=== PATIENT | male | born 1975 | race Caucasian/White ===

== ENCOUNTER 2024-08-25 07:03 | Observation (INO) ==
--- NOTE | 2024-08-25 07:21 | Emergency Department Note ---
Impression & Plan Spleen hematoma, Abdominal pain ED Provider Note CHIEF COMPLAINT: Abdominal pain HISTORY OF PRESENTING ILLNESS: This 48-year-old male patient presents to the emergency department with his mother for evaluation of left sided and epigastric abdominal pain. He started with mild symptoms 3 days ago. He also had nausea and vomiting the evening that the pain started. He felt like he had fever and chills at that time too. The next day he felt a little better, but did not eat much. Last night at 10 PM the pain got worse. At 3:30 AM this morning the pain was excruciating and he got dizzy and felt like he was going to pass out. The patient states that he was able to put his hand on the bed and dresser and lowered himself down to the ground. He states that he did not fall. However, he thinks he did pass out because he woke up on the floor sweaty. He does not think he hit his head. He is not on any blood thinners. Denies any headache or pain from the possible syncopal episode. Denies headache, dizziness, change in vision, nausea, vomiting, or change in personality currently. Denies any diarrhea and has been having normal BMs. He continues to pass gas without problems. No vomiting since the initial day. Denies any chest pain or SOB, but different positions the abdominal pain can cause his breath to be taken away. Denies any urinary symptoms. No known ill contacts. He has had an appendectomy. The patient denies any fevers, cough, or URI symptoms recently. He denies any recent injury or trauma. He drinks 10-15 beers a week. The patient had a colonoscopy 05/17/[address] La that showed a 3 mm rectal polyp and nonbleeding internal hemorrhoids. Pathology showed that the polyp was a hyperplastic polyp. REVIEW OF SYSTEMS: See HPI for pertinent positives and pertinent negatives. ALLERGIES: NKDA MEDICATIONS: Omeprazole PAST MEDICAL HISTORY: GERD. Appendectomy. PHYSICAL EXAM: VITALS: Vitals are noted on the nurse's note and reviewed by myself. GENERAL: Non toxic, in no acute distress, non-diaphoretic. SKIN: Capillary refill <2 sec. EYES: PERRLA. EOMI. Conjunctivae without injection, sclerae without icterus. NOSE: Patent without discharge. MOUTH: Mucous membranes moist. Uvula midline. Airway patent. NECK: Supple without nuchal rigidity. HEART: Regular rate and rhythm without murmurs gallops or rubs. LUNGS: Clear to auscultation bilaterally without wheezes, rales or rhonchi. No retractions or accessory muscle use. ABDOMEN: Positive bowel sounds x 4. Normal tympanic percussion. Soft, diffusely tender to palpation, but worse in the epigastric and left side of the abdomen. The pain is worse with activation of the abdominal wall muscles and sitting up. No evidence for ecchymosis or bruising. Negative [place]'s and [place]yers sign. No masses or hepatosplenomegaly. Arce sign negative. No CVA tenderness. No guarding, rigidity, or rebound tenderness. No focal RLQ tenderness. MUSCULOSKELETAL: No gross musculoskeletal defects. NEURO: Patient was alert and oriented. No focal neurological deficits. DIFFERENTIAL DIAGNOSIS: Differential diagnosis includes hepatitis, pancreatitis, cholecystitis, cholelithiasis, appendicitis, kidney stone, pyelonephritis, UTI, gastritis, gastroenteritis, mesenteric adenitis, obstruction, constipation, hernia, abdominal abscess, perforation, diverticulitis, IBD, ischemic colitis, abdominal aortic aneurysm, testicular torsion, prostatitis, or others. ED COURSE AND MEDICAL DECISION MAKING: MEDICATIONS GIVEN: 2 L normal saline solution bolus. Tylenol 1000 mg IV. Zofran 4 mg IV. Pepcid 20 mg IV. Toradol was initially ordered, but then canceled due to his renal functions and CT scan findings. MONITOR: Continuous pattern hand: Order was placed for continuous pattern hand. Patient was placed on the pattern hand and continuous pulse ox. Patient was noted to be in normal sinus rhythm at an initial rate of 90 bpm per my interpretation. EKG: EKG was interpreted by myself as normal sinus rhythm at 85 bpm with no acute ST or T wave changes. INTERPRETATION OF LABS: I interpreted the labs with full lab results as below in the lab section of this note. Laboratory results pertinent to the emergent complaint are discussed in the MDM section below. The patient was advised to follow up with their PCP and/or specialist(s) for further outpatient monitoring and management of any abnormal results. INTERPRETATION OF IMAGING: Imaging studies were interpreted by myself and read by radiology as per the imaging section of this note. The patient was advised to follow up with their PCP and/or specialist(s) for further outpatient management of any non-emergent abnormal findings. Chest x-ray negative for acute cardiopulmonary etiology and no free air under the diaphragm. CT scan of the abdomen and pelvis with IV contrast shows a small perisplenic hematoma, a small amount of hemorrhage in the left upper quadrant, and a small amount of layering hemorrhage in the pelvis consistent with a splenic hemorrhage. There is mild splenomegaly. No significant splenic laceration seen. No contrast extravasation seen to suggest continuing hemorrhage. The prostate is mildly enlarged. Diverticulosis, but no evidence of diverticulitis. EXTERNAL RECORDS REVIEWED: I reviewed the patient's last colonoscopy as above. CONSULTATIONS: Negar Chauhan PA-C of surgery MDM SUMMARY: I examined the patient. The patient started with epigastric and left-sided abdominal pain 3 days ago. The symptoms got a lot worse last night. The patient thinks he may have passed out from the pain at 3:30 AM this morning because he woke up on the floor sweaty. He does not think he hit his head. He denies any head injury symptoms and denies any pain other than his abdomen. He denies any chest pain or shortness of breath. An IV lock was placed and labs were drawn. The patient was initially given 1 L normal saline solution bolus, Tylenol 1000 mg IV, Zofran 4 mg IV, and Pepcid 20 mg IV. Toradol was initially ordered for additional pain control, but then canceled due to his renal functions and CT scan findings. The patient declined any stronger pain medication while in the ER. The patient was given a second liter of normal saline solution bolus due to the 2+ ketones in his urine, his urinalysis findings, and his BMP findings. White blood cell count normal at 6.46. Hemoglobin normal at 16.1. Platelet count normal at 188. Sodium 134, anion gap 13, creatinine 1.6, glucose 150, AST 48, and ALT 62. CMP otherwise normal. Magnesium normal. Lipase normal. Urinalysis with 2+ proteins, 2+ ketones, 1+ urine bilirubin, trace leukocyte esterase, greater than 20 hyaline casts, 11-20 epithelial cells. Granular casts, white blood cell casts, and urine mucus present. Chest x-ray negative for acute cardiopulmonary etiology and no free air under the diaphragm. CT scan of the abdomen and pelvis with IV contrast shows a small perisplenic hematoma, a small amount of hemorrhage in the left upper quadrant, and a small amount of layering hemorrhage in the pelvis consistent with a splenic hemorrhage. There is mild splenomegaly. No significant splenic laceration seen. No contrast extravasation seen to suggest continuing hemorrhage. The prostate is mildly enlarged. Diverticulosis, but no evidence of diverticulitis. The patient denies any injury or trauma recently. He states that he did not fall this morning, but rather lowered himself to the floor. He denies any recent fevers or URI symptoms to suggest possible mononucleosis enlarging his spleen. He denies any previous problems with his spleen or bleeding disorders. The patient has no evidence of ecchymosis on exam at this time. The patient is not on blood thinners. I spoke with Negar Chauhan PA-C of general surgery who presented to the emergency department to evaluate the patient. Surgery recommended the patient be admitted for observation under the hospitalist service. No indication for surgical intervention at this time. I spoke with the on-call hospitalist who agreed to admit the patient for further evaluation and treatment. Please refer to their dictation for further details. The patient's care was transferred in stable condition. DIAGNOSIS: Splenic hemorrhage Abdominal pain ? Syncopal episode Past Med/Surg History Problem List (Updated 08/25/24 @ 17:32 by Claire Elder PA-C) Abdominal pain (Acute) Spleen hematoma (Acute) Pre-diabetes Colon cancer screening Encounter for pre-operative examination Hx of appendectomy (Chronic) Dysphagia (Chronic) Umbilical hernia without obstruction and without gangrene (Chronic) Chronic GERD (Chronic) Medical History GERD (gastroesophageal reflux disease) History of COVID-19 03/2021 (TESTED [facility]) MILD FEVER/FATIGUE/BODY ACHES *FEELING BETTER Surgical History History of esophagogastroduodenoscopy (EGD) History of appendectomy [place] teeth removed Family History Mother Asthma Grandfather (Paternal) Myocardial infarction Father Family history of diabetes mellitus Other No family history of adverse response to anesthesia Denies family history of Ovarian cancer Prostate cancer Breast cancer Colorectal cancer Social History Smoking Status: Never smoker Tobacco Type: Cigarettes Age Started Using Tobacco: 20; Age Quit Using Tobacco: 40; packs per day: 0.5; Cigarettes Per Day: 10; Second Hand Exposure: No; Do You Dip or Chew Tobacco: No; Tobacco Cessation Education Requested by Patient: No Hx Alcohol Use: Yes Alcohol type: beer Alcohol Intake Frequency: 2-3 x/Week Hx Substance Use: Yes Non-Prescribed Medications: Marijuana Last Used Substance Other:: 1 week ago Substance Use Type Other:: medical marijuana Preferred Language: Yi Communication Ability: Effective Visual Impairment: No Limitations Hearing Ability: Normal Team Assistant Required: No Beliefs That Will Affect Care: None marital status: Single Current Living Situation: Alone current occupational status: employed current occupation: [employer] HEL[employer] How many Children do You have: 1 Other Information That Helps Us Care for You: No Feels Safe at Home: Yes Safety Concerns: Feels Safe At This Time Childhood Exposure to Second-Hand Smoke: No Diet: regular caffeine: Yes during the past year weight has: increased > 10 lbs Dental Care, Regularly: Yes Physical Activity Frequency: Daily Seatbelt Use: always Sunscreen Use: Yes Assistive Devices: Glasses Allergies Allergies Allergy/AdvReac Type Severity Reaction Status Date / Time No Known Allergies Allergy Verified 06/13/24 07:58 Home Meds Previous Rx's Medication Instructions Recorded omeprazole 20 mg capsule,delayed 20 mg PO QAM #90 caps 02/28/22 release Results & Data (ED) Vital Signs Vital Signs - 24 hr 08/25/24 07:12 08/25/24 07:28 08/25/24 08:10 Temperature 36.6 C Temperature Source Oral Pulse Rate 112 H 88 80 Pulse Rate [Apical] Respiratory Rate 20 12 Respiratory Effort / Characteristics Non-Labored Spontaneous Respiratory Depth Normal Respiratory Pattern Regular Blood Pressure 101/67 Blood Pressure [Left Arm] Blood Pressure Mean 78 Blood Pressure Mean [Left Arm] Pulse Oximetry 100 96 Oxygen Delivery Method Room Air Room Air Sepsis Recent Fever Within 48 Hours No Sepsis New/Unexplained Change in Mental Status N/A Sepsis Action Taken by Nursing No Action Required 08/25/24 08:10 08/25/24 09:01 08/25/24 09:46 Temperature Temperature Source Pulse Rate Pulse Rate [Apical] 74 80 76 Respiratory Rate 14 23 17 Respiratory Effort / Characteristics Non-Labored Spontaneous Non-Labored Non-Labored Spontaneous Respiratory Depth Normal Normal Normal Respiratory Pattern Regular Regular Regular Blood Pressure Blood Pressure [Left Arm] 129/86 126/83 137/89 Blood Pressure Mean Blood Pressure Mean [Left Arm] 100 97 105 Pulse Oximetry 96 96 98 Oxygen Delivery Method Room Air Room Air Room Air Sepsis Recent Fever Within 48 Hours Sepsis New/Unexplained Change in Mental Status Sepsis Action Taken by Nursing 08/25/24 10:13 08/25/24 10:47 08/25/24 11:04 Temperature Temperature Source Pulse Rate Pulse Rate [Apical] 80 82 88 Respiratory Rate 15 17 16 Respiratory Effort / Characteristics Non-Labored Spontaneous Non-Labored Spontaneous Non-Labored Spontaneous Respiratory Depth Normal Normal Normal Respiratory Pattern Regular Regular Regular Blood Pressure Blood Pressure [Left Arm] 125/78 136/76 134/92 Blood Pressure Mean Blood Pressure Mean [Left Arm] 93 96 106 Pulse Oximetry 98 96 97 Oxygen Delivery Method Room Air Room Air Room Air Sepsis Recent Fever Within 48 Hours Sepsis New/Unexplained Change in Mental Status Sepsis Action Taken by Nursing Laboratory Data 08/25/24 14:00 08/25/24 07:23 Lab Results 08/25/24 08/25/24 Range/Units 07:23 08:01 WBC 6.46 (4.8-10.8) K/ul RBC 5.59 (4.70-6.10) M/uL Hgb 16.1 (14.0-18.0) g/dl Hct 47.7 (42.0-52.0) % MCV 85.3 (80.0-100.0) fL MCH 28.8 (25.0-34.0) pg MCHC 33.8 (32.0-36.0) g/dL RDW Std Deviation 42.1 (36.4-46.3) fL RDW Coeff of Judi 13.6 (11.5-14.5) % Plt Count 188 (130-400) K/uL MPV 10.4 (9.4-12.4) fL Immature Gran % (Auto) 0.3 % Neut % (Auto) 74.4 % Lymph % (Auto) 13.2 % [place] % (Auto) 11.9 % Eos % (Auto) 0.0 % Baso % (Auto) 0.2 % Neut # (Auto) 4.81 (1.40-6.50) K/uL Lymph # (Auto) 0.85 L (1.20-3.40) K/uL [place] # (Auto) 0.77 H (0.11-0.59) K/uL Eos # (Auto) 0.00 (0.00-0.50) K/uL Baso # (Auto) 0.01 (0.00-0.20) K/uL Immature Gran # (Auto) 0.02 (0.01-0.20) K/uL Toxic Vacuolation 1+ Sodium 134 L (136-145) mmol/L Potassium 3.5 (3.5-5.1) mmol/L Chloride 96 L (98-107) mmol/L Carbon Dioxide 25 (21-32) mmol/L Anion Gap 13 H (3-11) BUN 22 (6-23) mg/dl Creatinine 1.60 H (0.6-1.4) mg/dl Est Cr Clr Drug Dosing 60.3 ml/min eGFR 52.82 BUN/Creatinine Ratio 13.8 (10-20) Glucose 150 H (70-99(Fasting)) mg/dl Calcium 9.4 (8.6-10.3) mg/dl Magnesium 2.1 (1.7-2.4) mg/dl Total Bilirubin 0.9 (0.2-1.0) mg/dl AST 48 H (13-39) U/L ALT 62 H (7-52) U/L Alkaline Phosphatase 90 (34-104) U/L Troponin I High Sens 19.0 (0-20) pg/ml Total Protein 7.8 (6.0-8.3) gm/dl Albumin 4.4 (3.4-5.0) gm/dl Globulin 3.4 (2.5-4.0) gm/dl Albumin/Globulin Ratio 1.3 (0.9-2) Lipase 32 (11-82) U/L Urine Color Dark Yellow Urine Appearance Cloudy A (Clear) Urine pH 5.5 (4.5-7.5) Ur Specific [place] 1.026 (1.000-1.030) Urine Protein 2+ H (Negative) Urine Glucose (UA) Negative (Negative) Urine Ketones 2+ H (Negative) Urine Blood Negative (Negative) Urine Nitrite Negative (Negative) Urine Bilirubin 1+ H (Negative) Urine Urobilinogen Negative (Negative) Ur Leukocyte Esterase Trace H (Negative) Urine WBC (Auto) 0-5 (0-5) /hpf Urine RBC (Auto) 0-2 (0-2) /hpf U Hyaline Cast (Auto) >20 H (0-2) /lpf U Epithel Cells (Auto) 11-20 H (0-2) /hpf Urine Bacteria (Auto) None Seen (None Seen) Hyaline Casts Present A (None Presnt) /lpf Granular Casts Present A (None Prsent) /lpf WBC Casts Present A (None Prsent) /lpf Urine Mucus Present A (None Prsent) Urine Comment Monoscreen Negative (Negative) Administered Medications Lactated Ringer's (Lr) 1,000 mls @ 100 mls/hr IV .Q10H LEMUEL Stop: 08/25/24 21:44 Last Admin: 08/25/24 12:56 Dose: 100 mls/hr Documented By: MARBIN Discontinued Medications Sodium Chloride (Nss) 1,000 mls @ 999 mls/hr IV .Q1H1M ONE Stop: 08/25/24 08:43 Last Infusion: 08/25/24 09:13 Dose: Infused Documented By: Admin: 08/25/24 07:55 Dose: 999 mls/hr Documented By: ZAYNAB Acetaminophen (Ofirmev) 1,000 mg in 100 mls @ 400 mls/hr IV NOW STA Stop: 08/25/24 07:57 Last Infusion: 08/25/24 08:15 Dose: Infused Documented By: Admin: 08/25/24 07:55 Dose: 400 mls/hr Documented By: ZAYNAB Famotidine (Pepcid 20mg Iv Push) 20 mg in 5 mls @ 2.5 mls/min IV NOW STA Stop: 08/25/24 07:44 Last Admin: 08/25/24 07:55 Dose: 2.5 mls/min Documented By: ZAYNAB Sodium Chloride (Nss) 1,000 mls @ 999 mls/hr IV .Q1H1M ONE Stop: 08/25/24 09:51 Last Infusion: 08/25/24 10:47 Dose: Infused Documented By: Admin: 08/25/24 09:24 Dose: 999 mls/hr Documented By: ZAYNAB Ioversol (Optiray 320 100ml) 94 ml IV ONCE ONE Stop: 08/25/24 08:38 Last Admin: 08/25/24 08:38 Dose: 94 ml Documented By: DAMASO Ketorolac Tromethamine (Ketorolac Tromethamine 15 Mg/Ml Vial) 5 mg IV NOW ONE Stop: 08/25/24 09:02 Last Admin: 08/25/24 09:13 Dose: Not Given Documented By: ZAYNAB Ondansetron HCl (Ondansetron Inj 2 Mg/Ml 2 Ml Vial) 4 mg IV NOW STA Stop: 08/25/24 07:44 Last Admin: 08/25/24 07:55 Dose: 4 mg Documented By: ZAYNAB Imaging Data Radiologist's Impression: Chest X-Ray 08/25/24 07:44 XR chest 1V portable CLINICAL HISTORY: Upright CXR - eval for free air - upper abd pain COMPARISON STUDY: 08/20/2014 FINDINGS: Heart size and pulmonary vasculature are normal. No effusion, consolidation, or pneumothorax. No free air seen under the diaphragm. IMPRESSION: No acute findings seen. ACT 112: Negative or not required by law. Electronically signed by: Chris Stevens M.D. 08/25/2024 8:25 AM Abdomen/Pelvis CT 08/25/24 07:[address] WITH IV CONTRAST CT DOSE: 1366.55 mGy.cm HISTORY: abdominal pain - upper and left sided TECHNIQUE: Multiaxial CT images of the abdomen and pelvis were performed following the IV administration of 90 cc of Optiray, A dose lowering technique was utilized adhering to the principles of ALARA. COMPARISON STUDY: None FINDINGS: ABDOMEN: There is a small perisplenic hematoma. There is a small amount of hematoma peripherally at the left upper quadrant. There is mild splenomegaly measuring 13 cm. No significant splenic laceration seen. Liver, gallbladder, pancreas, and adrenal glands are unremarkable. Kidneys show no hydronephrosis. There is a tiny cyst mid left kidney. There are mild atherosclerotic calcifications. No abdominal aortic aneurysm. Pelvis: There is a small amount of hemorrhage in the low pelvis and low paracolic gutters. No free air or abscess. Prostate is mildly enlarged. Urinary bladder is nondistended. There is mild colonic diverticulosis. No acute diverticulitis. No enlarged adenopathy. Osseous structures: There is L5-S1 degenerative disc disease. No acute osseous finding seen. IMPRESSION: 1. Small perisplenic hematoma, small amount of hemorrhage left upper quadrant, and small amount of layering hemorrhage in the pelvis, consistent with splenic hemorrhage. 2. There is mild splenomegaly. No significant splenic laceration seen. No contrast extravasation seen to suggest continuing hemorrhage. 3. Otherwise as described. ACT 112: Negative or not required by law. The above report was generated using voice recognition software. It may contain grammatical, syntax or spelling errors. Electronically signed by: Chris Stevens M.D. 08/25/2024 9:03 AM Discharge Plan Visit Data Chief Complaint: Abdominal Pain Stated Complaint: ABD PAIN, NAUSEA, VOMMITING ED Provider: Nirmal Varner ED Midlevel Provider: Claire Elder Discharge Problem: Spleen hematoma, Abdominal pain Patient Disposition: Admitted As Inpatient Condition: Fair Discharge Instructions Interventions: ED Discharge Assessment Last Done: 08/25/24 12:07 Discharge Problem: Spleen hematoma Qualifiers: Encounter type: initial encounter Qualified Code(s): S36.029A - Unspecified contusion of spleen, initial encounter Abdominal pain Qualifiers: Abdominal location: generalized Qualified Code(s): R10.84 - Generalized abdominal pain
[2024-08-25] MEDS: FAMOTIDINE 20MG IV PUSH 20 MG/5 ML SYR IV STA (07:55)
[2024-08-25] MEDS: ONDANSETRON INJ 2 MG/ML 2 ML VIAL IV STA (07:55)
[2024-08-25] MEDS: SODIUM CHLORIDE 0.9% 1,000 ML IV ONE ×2 (07:55→09:24)
[2024-08-25] MEDS: ACETAMINOPHEN 1,000 MG/100 ML VIAL IV STA (07:55)
[2024-08-25 07:58] LABS: Hematocrit (blood only) 47.7 % (42.0-52.0); Hemoglobin 16.1 g/dl (14.0-18.0); Mean Corpuscular Hemoglobin 28.8 pg (25.0-34.0); Mean Corpuscular Hgb Conc 33.8 g/dL (32.0-36.0); Mean Corpuscular Volume 85.3 fL (80.0-100.0); Mean Platelet Volume 10.4 fL (9.4-12.4); Platelet Count 188 K/uL (130-400); RDW Coefficient of Variation 13.6 % (11.5-14.5); RDW Standard Deviation 42.1 fL (36.4-46.3); Red Blood Count 5.59 M/uL (4.70-6.10); White Blood Count 6.46 K/ul (4.8-10.8)
[2024-08-25 08:16] LABS: Albumin Globulin Ratio 1.3 (0.9-2); Albumin Level 4.4 gm/dl (3.4-5.0); BUN Creatinine Ratio 13.8 (10-20); Bilirubin,Total 0.9 mg/dl (0.2-1.0); Calcium 9.4 mg/dl (8.6-10.3); Creatinine Clr Calc Pharmacy 60.3 ml/min; Globulin 3.4 gm/dl (2.5-4.0); Magnesium 2.1 mg/dl (1.7-2.4); Potassium 3.5 mmol/L (3.5-5.1); Total Protein 7.8 gm/dl (6.0-8.3)
[2024-08-25 08:21] LABS: Basophils # (auto) 0.01 K/uL (0.00-0.20); Basophils % (auto) 0.2 %; Immature Granulocytes # (auto) 0.02 K/uL (0.01-0.20); Immature Granulocytes % (auto) 0.3 %; Lymphocytes # (auto) 0.85 K/uL (1.20-3.40); Lymphocytes % (auto) 13.2 %; Monocytes # (auto) 0.77 K/uL (0.11-0.59); Monocytes % (auto) 11.9 %; Neutrophils # (auto) 4.81 K/uL (1.40-6.50); Neutrophils % (auto) 74.4 %; Toxic Vacuolation 1+
--- NOTE | 2024-08-25 08:28 | XRay Report ---
XR chest 1V portable CLINICAL HISTORY: Upright CXR - eval for free air - upper abd pain COMPARISON STUDY: 08/20/2014 FINDINGS: Heart size and pulmonary vasculature are normal. No effusion, consolidation, or pneumothora x. No free air seen under the diaphragm. IMPRESSION: No acute findings seen. ACT 112: Negative or not required by law. Electronically signed by: Chris Stevens M.D. 08/25/2024 8:25 AM
[2024-08-25] MEDS: OPTIRAY 320 100ml IV ONE (08:38)
[2024-08-25 08:48] LABS: Appearance Urine Cloudy (Clear); Bacteria Urine Automated None Seen (None Seen); Bilirubin Urine 1+ (Negative); Blood Urine Negative (Negative); Cast Urine Automated >20 /lpf (0-2); Color Urine Dark Yellow; Glucose Urine UA Negative (Negative); Granular Casts Urine Present /lpf (None Prsent); Hyaline Casts Urine Present /lpf (None Presnt); Ketones Urine 2+ (Negative); Leukocyte Esterase Urine Trace (Negative); Mucus Urine Present (None Prsent); Nitrite Urine Negative (Negative); Protein Urine 2+ (Negative); RBC Urine Automated 0-2 /hpf (0-2); Specific Gravity Urine 1.026 (1.000-1.030); Urobilinogen Urine Negative (Negative); WBC Urine Automated 0-5 /hpf (0-5); White Blood Cell Casts Urine Present /lpf (None Prsent); pH Urine 5.5 (4.5-7.5)
--- NOTE | 2024-08-25 09:05 | CT Scan Report ---
ABDOMEN AND PELVIS CT WITH IV CONTRAST CT DOSE: 1366.55 mGy.cm HISTORY: abdominal pain - upper and left sided TECHNIQUE: Multiaxial CT images of the abdomen and pelvis were performed following the IV administrat ion of 90 cc of Optiray, A dose lowering technique was utilized adhering to the principles of ALARA. COMPARISON STUDY: None FINDINGS: ABDOMEN: There is a small perisplenic hematoma. There is a small amount of hematoma peripherally at t he left upper quadrant. There is mild splenomegaly measuring 13 cm. No significant splenic laceration seen. Liver, gallbladder, pancreas, and adrenal glands are unremarkable. Kidneys show no hydronephro sis. There is a tiny cyst mid left kidney. There are mild atherosclerotic calcifications. No abdomina l aortic aneurysm. Pelvis: There is a small amount of hemorrhage in the low pelvis and low paracolic gutters. No free ai r or abscess. Prostate is mildly enlarged. Urinary bladder is nondistended. There is mild colonic div erticulosis. No acute diverticulitis. No enlarged adenopathy. Osseous structures: There is L5-S1 degenerative disc disease. No acute osseous finding seen. IMPRESSION: 1. Small perisplenic hematoma, small amount of hemorrhage left upper quadrant, and small amount of la yering hemorrhage in the pelvis, consistent with splenic hemorrhage. 2. There is mild splenomegaly. No significant splenic laceration seen. No contrast extravasation seen to suggest continuing hemorrhage. 3. Otherwise as described. ACT 112: Negative or not required by law. The above report was generated using voice recognition software. It may contain grammatical, syntax o r spelling errors. Electronically signed by: Chris Stevens M.D. 08/25/2024 9:03 AM
[2024-08-25] MEDS: KETOROLAC TROMETHAMINE 15 MG/ML VIAL IV ONE (09:13)
--- NOTE | 2024-08-25 09:35 | Surgery Consultation ---
Date of Consultation August 25, 2024 Assessment & Plan (1) Spleen hematoma: This is a 48y M with a PMH of GERD who presents to the [facility] ED on 08/25/24 with complaints of abdominal pain with recent lightheadedness and possible associated syncopal episode. The patient states he did have some nausea/vomiting with torres bjective fevers starting this past Sunday. Sunday he felt a little better but did begin to develop some abdominal discomfort. Then late last night into this AM he developed worsening pain in his upper abdomen and left sided abdomen that was severe. When he stood up he felt lightheaded and dizzy and feels like he maybe passed out. He was able to get his hands on his dressers to assist him to the floor, but doesn't remember much. When he came to he called his mother to bring him to the ER. Workup in the ER included a CT a/p that revealed a small perisplenic hematoma, small amount of hemorrhage left upper quadrant, and small amount of layering hemorrhage in the pelvis, consistent with splenic hemorrhage.There is mild splenomegaly. No significant splenic laceration seen. No contrast extravasation seen to suggest continuing hemorrhage. He denies any sort of trauma, falls, MVAs, etc. In the ER patient's Hbg is 16, WBC 6.4, K 3.5, Cr 1.6. His vital signs are stable. On exam abdomen is soft with mild discomfort to palpation in the right mid abdomen and across the bilateral lower abdomen. Patient feels better than upon presentation. There is no signs of active extravasation on CT scan and he has a stable Hbg and vitals. Would recommend patient be admitted for observation under hospitalist service. Can consider q6h hbg to ensure stability and continue to monitor vitals and patient closely. Hold any blood thinners. At this point there is no indication for any surgical intervention. We will follow. as above. stable. small splenic hematoma. admit. follow h/h. doubt surgical intervention will be required.will follow along History of Present Illness History of Present Illness This is a 48y M with a PMH of GERD who presents to the [facility] ED on 08/25/24 with complaints of abdominal pain with recent lightheadedness and possible associated syncopal episode. The patient states he did have some nausea/vomiting with subjective fevers starting this past Sunday. Sunday he felt a little better but did begin to develop some abdominal discomfort. Then late last night into this AM he developed worsening pain in his upper abdomen and left sided abdomen that was severe. When he stood up he felt lightheaded and dizzy and feels like he maybe passed out. He was able to get his hands on his dressers to assist him to the floor, but doesn't remember much. When he came to he called his mother to bring him to the ER. Workup in the ER included a CT a/p that revealed a small perisplenic hematoma, small amount of hemorrhage left upper quadrant, and small amount of layering hemorrhage in the pelvis, consistent with splenic hemorrhage. There is mild splenomegaly. No significant splenic laceration seen. No contrast extravasation seen to suggest continuing hemorrhage. The patient states his nausea/vomiting only lasted Sunday. He has had low appetite yesterday but did have bananas, apple pie, apple sauce, and water. He denies any sort of trauma, falls, MVAs, etc. He report some SOB 2/2 the pain, but at rest he has no chest pains or SOB. He denies any sick contacts or eating undercooked foods to his knowledge. His PSH includes and appendectomy as well as an inguinal hernia repair as an . He denies any blood thinner usage. No change in bowel or bladder habits. Currently at rest in the ER his pain is now a 2-3/10. Allergies Allergy/AdvReac Type Severity Reaction Status Date / Time No Known Allergies Allergy Verified 06/13/24 07:58 Home Medications Medication Instructions Recorded Confirmed Type omeprazole 20 mg capsule,delayed 20 mg PO [facility] #90 caps 02/28/22 08/25/24 Rx release Patient History Medical History GERD (gastroesophageal reflux disease) History of COVID-19 03/2021 (TESTED [facility]) MILD FEVER/FATIGUE/BODY ACHES *FEELING BETTER Surgical History History of esophagogastroduodenoscopy (EGD) History of appendectomy [place] teeth removed Family History Mother Asthma Grandfather (Paternal) Myocardial infarction Father Family history of diabetes mellitus Other No family history of adverse response to anesthesia Denies family history of Ovarian cancer Prostate cancer Breast cancer Colorectal cancer Social History Smoking Status: Former smoker Tobacco Type: Cigarettes Age Started Using Tobacco: 20; Age Quit Using Tobacco: 40; packs per day: 0.5; Cigarettes Per Day: 10; Second Hand Exposure: No ( A CHILD); Do You Dip or Chew Tobacco: No; Hx Alcohol Use: Yes Alcohol type: beer Alcohol Intake Frequency: 2-3 x/Week Hx Substance Use: Yes Non-Prescribed Medications: Marijuana Substance Use Type Other:: former marijuana Preferred Language: [place] Communication Ability: Effective Visual Impairment: No Limitations Hearing Ability: Normal Value Stream Leader Required: No Beliefs That Will Affect Care: None marital status: Single Current Living Situation: Alone current occupational status: employed 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 How many Children do You have: 1 Feels Safe at Home: Yes Childhood Exposure to Second-Hand Smoke: No Diet: regular caffeine: Yes during the past year weight has: increased > 10 lbs Dental Care, Regularly: Yes Physical Activity Frequency: Daily Seatbelt Use: always Sunscreen Use: Yes Assistive Devices: Glasses Review of Systems Constitutional: + fever (sunday) and + chills (last ay) Respiratory: had some shortness of breath 2/2 pain Cardiovascular: no chest pain Gastrointestinal: + abdominal pain (epigastric and left si ded), + bloating, + nausea (sunday) and + vomiting (sunday); no change in bowel habits and no blood in stools Genitourinary: no hematuria or no problem reported Physical Exam Physical Exam: awake/alert, no distress Constitutional: well developed and well nourished Respiratory: normal respiratory effort Gastrointestinal (Abdomen): Inspection/Auscultation: + abdomen distended (mild) Percussion/Palpation: + abdomen tender (mild discomfort in left mid abdomen, R mid abdomen, and b/l lower abd), abdomen soft and + hernia (umbilical) Results & Data Vital Signs (Past 12 Hours) Vital Signs Temp Pulse Pulse Resp BP BP Pulse Ox 08/25/24 09:01 80 23 126/83 96 08/25/24 08:10 74 14 129/86 96 08/25/24 08:10 80 12 96 08/25/24 07:28 88 08/25/24 07:12 97.9 F 112 H 20 101/67 100 O2 Del Method 08/25/24 09:01 Room Air 08/25/24 08:10 Room Air 08/25/24 08:10 Room Air 08/25/24 07:28 08/25/24 07:12 Room Air Diagnostic Findings ABDOMEN AND PELVIS CT WITH IV CONTRAST CT DOSE: 1366.55 mGy.cm HISTORY: abdominal pain - upper and left sided TECHNIQUE: Multiaxial CT images of the abdomen and pelvis were performed following the IV administration of 90 cc of Optiray, A dose lowering technique was utilized adhering to the principles of ALARA. COMPARISON STUDY: None FINDINGS: ABDOMEN: There is a small perisplenic hematoma. There is a small amount of hematoma peripherally at the left upper quadrant. There is mild splenomegaly measuring 13 cm. No significant splenic laceration seen. Liver, gallbladder, pancreas, and adrenal glands are unremarkable. Kidneys show no hydronephrosis. There is a tiny cyst mid left kidney. There are mild atherosclerotic calcifications. No abdominal aortic aneurysm. Pelvis: There is a small amount of hemorrhage in the low pelvis and low paracolic gutters. No free air or abscess. Prostate is mildly enlarged. Urinary bladder is nondistended. There is mild colonic diverticulosis. No acute diverticulitis. No enlarged adenopathy. Osseous structures: There is L5-S1 degenerative disc disease. No acute osseous finding seen. IMPRESSION: 1. Small perisplenic hematoma, small amount of hemorrhage left upper quadrant, and small amount of layering hemorrhage in the pelvis, consistent with splenic hemorrhage. 2. There is mild splenomegaly. No significant splenic laceration seen. No contrast extravasation seen to suggest continuing hemorrhage. 3. Otherwise as described. ACT 112: Negative or not required by law. The above report was generated using voice recognition software. It may contain grammatical, syntax or spelling errors. Electronically signed by: Chris Stevens M.D. 08/25/2024 9:03 AM PG Care Time/CCT Total # of Minutes Spent Total Time Spent with Patient: Total time spent is greater than 50% in coordination of care (as documented) at patient's floor/unit and/or counseling patient: Coding Level of Care Code 13535 IN/OBS CONSULT LVL 2,35M Diagnoses Spleen hematoma S36.427G
--- NOTE | 2024-08-25 11:42 | History & Physical Report ---
Date of Service August 25, 2024 Assessment & Plan (1) Spleen hematoma: Plan 48-year-old male found to have splenic hematoma with small extravasation of hemorrhage after a nausea vomiting illness since resolved. Patient has no significant other medical problems except for GERD taking omeprazole #Splenic hematoma. General surgery is following the patient along with us. He will be kept NPO. He will be given additional fluid after 2 L given in emergency department. Hemoglobin will be checked at 2 PM and 10 PM of the day of admission. Expecting some dilutional effect as he seems hemoconcentrated on presentation with elevation BUN and elevation of the hemoglobin. Without signi ficant reduction in his hemoglobin we will begin feeding him. Monospot will be added to the testing. He does have mild transaminitis but this is likely related to modest alcohol intake. #GERD patient continues with omeprazole DVT prevention are SCDs History of Present Illness Primary Care Provider: Chiara Saleem MD 48-year-old male with past medical history of GERD only taking omeprazole who presents to the ER with abdominal pain. Reportedly the patient symptoms began 3 days prior to admission a few hours after eating breakfast she developed nausea and had periods of vomiting and dry heaving which were quite substantial. 2 days prior to admission though symptoms improved he developed some left upper quadrant abdominal pain which persisted throughout the day onto the 1 day prior to admission. He was unable to sleep because of the pain and around 3:30 AM he got up to get a drink of water when he had a presyncopal episode almost fell to the ground. The pain was quite substantial at that point time and he presented to the emergency department at which time he was found to have a small perisplenic hematoma with hemorrhage also noted in left upper quadrant and layering in the pelvis. This was an IV contrast study and there was no contrast extravasation seen. General surgery evaluated the patient in the emergency department and felt the patient should be observed. Patient denies any other medical problems his nausea vomiting has been resolved he has had no recent cold illness had no trauma at work or with recreation. He is does not take significant anticoagulation or use significant NSAIDs Allergies Allergy/AdvReac Type Severity Reaction Status Date / Time No Known Allergies Allergy Verified 06/13/24 07:58 Home Medications Medication Instructions Recorded Confirmed Type omeprazole 20 mg capsule,delayed 20 mg PO [facility] #90 caps 02/28/22 08/25/24 Rx release Past Med/Surg History Problem List (Updated 08/26/24 @ 10:50 by Jos Rivera DO) Anemia Abdominal pain (Acute) Spleen hematoma (Acute) Pre-diabetes Colon cancer screening Encounter for pre-operative examination Hx of appendectomy (Chronic) Dysphagia (Chronic) Umbilical hernia without obstruction and without gangrene (Chronic) Chronic GERD (Chronic) Medical History GERD (gastroesophageal reflux disease) History of COVID-19 03/2021 (TESTED [facility]) MILD FEVER/FATIGUE/BODY ACHES *FEELING BETTER Surgical History History of esophagogastroduodenoscopy (EGD) History of appendectomy [place] teeth removed Family History Mother Asthma Grandfather (Paternal) Myocardial infarction Father Family history of diabetes mellitus Other No family history of adverse response to anesthesia Denies family history of Ovarian cancer Prostate cancer Breast cancer Colorectal cancer Social History Smoking Status: Never smoker Tobacco Type: Cigarettes Age Started Using Tobacco: 20; Age Quit Using Tobacco: 40; packs per day: 0.5; Cigarettes Per Day: 10; Second Hand Exposure: No; Do You Dip or Chew Tobacco: No; Hx Alcohol Use: Yes Alcohol type: beer Alcohol Intake Frequency: 2-3 x/Week Hx Substance Use: Yes Non-Prescribed Medications: Marijuana Last Used Substance Other:: 1 week ago Substance Use Type Other:: medical marijuana Preferred Language: [place] Communication Ability: Effective Visual Impairment: No Limitations Hearing Ability: Normal Rewinder Required: No Beliefs That Will Affect Care: None marital status: Single Current Living Situation: Alone current occupational status: employed 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 How many Children do You have: 1 Feels Safe at Home: Yes Childhood Exposure to Second-Hand Smoke: No Diet: regular caffeine: Yes during the past year weight has: increased > 10 lbs Dental Care, Regularly: Yes Physical Activity Frequency: Daily Seatbelt Use: always Sunscreen Use: Yes Assistive Devices: Glasses Review of Systems Review of Systems: Mild distress and fatigue no headache, no visual changes no speech or swallowing issues no chest pain, pressure or palpitations no shortness of breath, cough or wheezes Left upper quadrant abdominal pain, previous nausea and vomiting now resolved, never any diarrhea or constipation no dysuria, hematuria or frequency no focal joint pain or swelling no back pain, CVA tenderness or radicular pain no bruising, bleeding or rashes no focal signs of weakness or numbness or altered sensation no complaints of anxiety or depression.. Physical Exam Physical Exam: The patient appeared well nourished and normally developed. Vital signs as documented. Head exam is normocephalic atraumatic Neck is without JVD, thyromegaly, or carotid bruits. Lungs are clear to auscultation, no focal loss of breath sounds Cardiac exam, Rhythm is regular.. No murmurs, rubs or gallops. Abdominal exam reveals normal bowel sounds, soft mild tenderness in bilateral upper quadrants Extremities are nonedematous and both pedal pulses are present Neurologic exam is alert and oriented, no focal loss of strength or sensation Skin is without bruises or rashes Psychologically is without concerns for anxiety or depression.. Results & Data Results & Data Vital Signs (Past 12 Hours) Vital Signs Temp Pulse Pulse Resp BP BP Pulse Ox 08/25/24 11:32 75 08/25/24 11:04 88 16 134/92 97 08/25/24 10:47 82 17 136/76 96 08/25/24 10:13 80 15 125/78 98 08/25/24 09:46 76 17 137/89 98 08/25/24 09:01 80 23 126/83 96 08/25/24 08:10 74 14 129/86 96 08/25/24 08:10 80 12 96 08/25/24 07:28 88 08/25/24 07:12 97.9 F 112 H 20 101/67 100 O2 Del Method 08/25/24 11:32 08/25/24 11:04 Room Air 08/25/24 10:47 Room Air 08/25/24 10:13 Room Air 08/25/24 09:46 Room Air 08/25/24 09:01 Room Air 08/25/24 08:10 Room Air 08/25/24 08:10 Room Air 08/25/24 07:28 08/25/24 07:12 Room Air Laboratory Results Reviewed CBC reviewed chemistry Reviewed EKG normal sinus rhythm Code Status & VTE Plan VTE Prophylaxis Plan VTE Prophylaxis will be ordered: Yes PG Care Time/CCT Total # of Minutes Spent Total Time Spent with Patient: Total time spent is greater than 50% in coordination of care (as documented) at patient's floor/unit and/or counseling patient: Coding Level of Care Code 35402 INT INP/OBS CARE 2/55MIN Diagnoses Spleen hematoma S36.029A Encounter type: initial encounter (1) Spleen hematoma Encounter type: initial encounter Qualified Code(s): S36.029A - Unspecified contusion of spleen, initial encounter
[2024-08-25] MEDS ORDERED: ONDANSETRON INJ 2 MG/ML 2 ML VIAL IV PRN (12:26)
[2024-08-25] MEDS ORDERED: ACETAMINOPHEN 325 MG TAB PO PRN (12:26)
[2024-08-25] MEDS: LACTATED RINGER'S 1,000 ML IV SCH (12:56)
[2024-08-26 03:47] VITALS: TEMP 97.9
[2024-08-26 06:18] LABS: Hematocrit (blood only) 37.8 % (42.0-52.0); Hemoglobin 12.9 g/dl (14.0-18.0); Mean Corpuscular Hemoglobin 29.2 pg (25.0-34.0); Mean Corpuscular Hgb Conc 34.1 g/dL (32.0-36.0); Mean Corpuscular Volume 85.5 fL (80.0-100.0); Mean Platelet Volume 10.1 fL (9.4-12.4); Platelet Count 150 K/uL (130-400); RDW Coefficient of Variation 13.4 % (11.5-14.5); RDW Standard Deviation 42.4 fL (36.4-46.3); Red Blood Count 4.42 M/uL (4.70-6.10); White Blood Count 5.99 K/ul (4.8-10.8)
[2024-08-26 06:35] LABS: Albumin Level 3.6 gm/dl (3.4-5.0); Bilirubin,Total 0.6 mg/dl (0.2-1.0); Calcium 8.3 mg/dl (8.6-10.3); Potassium 3.7 mmol/L (3.5-5.1)
[2024-08-26 06:43] LABS: Albumin Globulin Ratio 1.4 (0.9-2); BUN Creatinine Ratio 15.1 (10-20); Creatinine Clr Calc Pharmacy 105.1 ml/min; Globulin 2.6 gm/dl (2.5-4.0); Total Protein 6.2 gm/dl (6.0-8.3)
[2024-08-26 07:11] VITALS: BP 156/94; RESP 18; O2SAT 99
--- NOTE | 2024-08-26 07:18 | Surgery Progress Note ---
Date of Service August 26, 2024 Assessment & Plan (1) Spleen hematoma: Plan: pt here w/ splenic hematoma s/p episodes of nausea/vomiting a few days ago trending hbg has been stable in the 12's last 3 checks. vitals are stable patient denies worsening pain or symptoms will re-instate a diet if goes well can consider dispo later today Admission and Anticipated Discharge Date Admission Date: August 25, 2024 Subjective Patient feeling well. He is hungry. Denies much pain. Physical Exam Physical Exam: awake/alert, no distress Gastrointestinal (Abdomen): Inspection/Auscultation: + abdomen distended (mild) Percussion/Palpation: abdomen soft; abdomen nontender Results & Data Vital Signs (Past 12 Hours) Vital Signs Temp Pulse Pulse Resp BP Pulse Ox O2 Del Method 08/26/24 07:10 97.9 F 89 18 156/94 H 99 Room Air 08/26/24 03:45 97.9 F 65 14 144/79 H 97 Room Air 08/25/24 23:04 98.8 F 71 14 147/85 H 97 Room Air 08/25/24 21:43 68 08/25/24 19:23 98.2 F 78 16 155/89 H 99 Room Air PG Care Time/CCT Total # of Minutes Spent Total Time Spent with Patient: Total time spent is greater than 50% in coordination of care (as documented) at patient's floor/unit and/or counseling patient: Coding Level of Care Code 43298 SUB INP/OBS CARE 03/29MIN Diagnoses Spleen hematoma S36.029A Encounter type: initial encounter (1) Spleen hematoma Encounter type: initial encounter Qualified Code(s): S36.029A - Unspecified contusion of spleen, initial encounter
[2024-08-26] MEDS: PANTOprazole 40 MG TAB PO SCH (07:44)
--- NOTE | 2024-08-26 07:59 | Discharge Summary ---
Date of Service August 26, 2024 Admission HPI Per Admitting Provider 48-year-old male with past medical history of GERD only taking omeprazole who presents to the ER with abdominal pain. Reportedly the patient symptoms began 3 days prior to admission a few hours after eating breakfast she developed nausea and had periods of vomiting and dry heaving which were quite substantial. 2 days prior to admission though symptoms improved he developed some left upper quadrant abdominal pain which persisted throughout the day onto the 1 day prior to admission. He was unable to sleep because of the pain and around 3:30 AM he got up to get a drink of water when he had a presyncopal episode almost fell to the ground. The pain was quite substantial at that point time and he presented to the emergency department at which time he was found to have a small perisplenic hematoma with hemorrhage also noted in left upper quadrant and layering in the pelvis. This was an IV contrast study and there was no contrast extravasation seen. General surgery evaluated the patient in the emergency dep artment and felt the patient should be observed. Patient denies any other medical problems his nausea vomiting has been resolved he has had no recent cold illness had no trauma at work or with recreation. He is does not take significant anticoagulation or use significant NSAIDs Admission Exam Per Admitting Provider The patient appeared well nourished and normally developed. Vital signs as documented. Head exam is normocephalic atraumatic Neck is without JVD, thyromegaly, or carotid bruits. Lungs are clear to auscultation, no focal loss of breath sounds Cardiac exam, Rhythm is regular.. No murmurs, rubs or gallops. Abdominal exam reveals normal bowel sounds, soft mild tenderness in bilateral upper quadrants Extremities are nonedematous and both pedal pulses are present Neurologic exam is alert and oriented, no focal loss of strength or sensation Skin is without bruises or rashes Psychologically is without concerns for anxiety or depression.. Principal Diagnosis Splenic Hematoma Discharge Exam General: patient resting comfortably, NAD, non-toxic in appearance, answers questions appropriately. Skin: warm, dry, intact HEENT: NC/AT, anicteric sclera, conjunctiva without injection, moist mucus membranes. Heart: +S1/S2, regular, no m/r/g Lungs: equal air entry bilaterally, no rales/rhonchi/wheezes Abd: +BS, soft, NT/ND Ext: warm, no clubbing/cyanosis or edema Neuro: nonfocal, speech intact, no facial droop, moving all extremities. Discharge Data Allergies Allergy/AdvReac Type Severity Reaction Status Date / Time No Known Allergies Allergy Verified 06/13/24 07:58 Consultations 08/25/24 10:12 ED Decision to Admit Stat 08/25/24 12:26 Consult General Surgery Routine Ordered Studies 08/25/24 07:45 CT abd pelvis IV con only Stat Hospital Course (1) Anemia: (2) Abdominal pain: (3) Spleen hematoma: (4) Pre-diabetes: Plan 48-year-old male found to have splenic hematoma with small extravasation of hemorrhage after a nausea vomiting illness since resolved. Patient has no significant other medical problems except for GERD taking omeprazole #Splenic hematoma. General surgery is following the patient along with us. He will be kept NPO. He will be given additional fluid after 2 L given in emergency department. Hemoglobin will be checked at 2 PM and 10 PM of the day of admission. Expecting some dilutional effect as he seems hemoconcentrated on presentation with elevation BUN and elevation of the hemoglobin. Without significant reduction in his hemoglobin we will begin feeding him. Monospot will be added to the testing. He does have mild transaminitis but this is likely related to modest alcohol intake. #GERD patient continues with omeprazole DVT prevention are SCDs Total Time Total Time Spent Total Time Spent (In Minutes): See attending attestation Discharge Plan Discharge Items Patient Disposition: Home - Self-Care Reason For Visit: SPLENIC HEMATOMA Discharge Diagnosis: Splenic hematoma Condition on Discharge: Fair Activity: Per Instructions section Non-emergency contact: Primary Care Provider Call non-emergency contact if: your symptoms worsen and your pain is not controlled Follow-up/Referrals: Chiara Saleem MD [Primary Care Provider] - 09/02/24 10:20 am (Hospital follow up on September 02 at 10:20 am.) Tony Burr DO [Surgeon] - 09/10/24 10:15 am (Hospital follow up on September 10 at 10:15 am.) Diet: Regular Ambulatory Orders: Complete Blood Count with Diff (Timed) Timeframe: 1 Week Location: Determined by Patient Ordered By: Jos Morrison Attending Provider Instructions: You were admitted to the hospital for abdominal pain, nausea, vomiting, and 1 episode of dizziness related to a GI infection. When your abdomen was imaged a incidental finding of a small splenic hematoma with some fluid in the pelvis and abdomen that was appropriate with this type of spleen injury seen on your abdomen/pelvis CT imaging. This may of occurred due to intense and numerous episodes of vomiting related to your GI illness. While in the hospital you were treated by the hospitalist team and also seen by the surgery team to review your spleen hematoma. The spleen injury did not show any lacerations or active bleed and was mild in presentation. While you were admitted you were given fluids and food was held as you were recovering. Your hemoglobin or blood counts did mildly dip into the 12s but stayed stable after this, and this is likely a consequence of dilution of your blood with the addition of fluids. As you begin to eat a regular diet and recover from this GI discomfort I expect that these blood counts will continue to normalize. General surgery has reported that they can follow-up with you in 1-2 weeks following your hospital stay to recheck your abdomen. I will order a CBC to be completed in approximately 7 days to re-check your blood counts and make sure that they are normalizing outside of the hospital. Otherwise you may resume your regular omeprazole medication from GERD, and as you did great with breakfast and report that the nausea, vomiting, abdominal pain, and dizziness have all resolved I expect you to continue improving. Please do not play contact sports or lift heavy material for the next month or so to protect your spleen. A discharge summary will be sent to your primary care physician to ensure continuity of care. Please bring this discharge summary with you to your next office appointment so that your provider can review it at that time. Follow-up appointments: Make a follow-up appointment with your PCP within the next week. It is very important that you follow up with them shortly after discharge from the hospital. Please call in the next few days to schedule general surgery follow-up in clinic in the next 1-2 weeks. Appointment will be with Dr. Tony Burr at [address] [facility] [address], [address] floor, [place] [address] Keep all your follow-up appointments as already scheduled. If you cannot make an appointment, notify your provider. Medications: Your medication list has been reviewed and reconciled upon discharge to ensure accuracy and continuity of care. An updated list of all your medications is included with your hospital discharge paperwork. Please review this list closely, and make note of any changes. Take your medications as instructed; do not skip a dose of your medicines. Make sure all of your doctors know every medicine you are taking (including [id number] medicines, vitamins, and supplements). Call your primary care provider before taking any new medicines (including [id number] medicines, vitamins, and supplements), because some of these may interact with your current medications, or may make your symptoms worse. Tell your primary care provider if you cannot afford your medications. CONTACT YOUR PRIMARY CARE PROVIDER if you experience any of the following: Difficulty following your treatment plan, or difficulty taking medications CALL 911 OR GO TO THE EMERGENCY DEPARTMENT if you experience any of the following: Sudden, severe abdominal pain or nausea/vomiting Severe chest pain, or chest pain that radiates (moves) to your jaw or arm Sudden, severe shortness of breath or difficulty breathing Thank you for allowing us to participate in your care. Pending Studies at Discharge: Yes Studies:: CBC to be completed in 1 week after d/c, paper order to be given with d/c instructions Stand-Alone Forms: My [employer], Work/School Release, Smoking Cessation Medications and DC Order Prescriptions: Continued omeprazole 20 mg capsule,delayed release(DR/EC) 20 mg PO QAM Qty: 90 1RF Discharge Orders: Discharge Order (Routine); Ordered 08/26/24 Ordered By: Jos Rivera Admission Data Admit Date/Time: 08/25/24 11:26 Attending Provider: Afua Larry Admit Provider: Quentin Winslow Primary Care Provider: Chiara Saleem Other Providers: Negar Chauhan; Quentin Winslow Other Interventions: Discharge Summary Assessment (RN) Last Done: 08/26/24 11:25 Supervising Physician Co-Signing Physician Notes I personally examined the patient and verified dobson points of history and exam, discussed case, and agree with decision making and plan documented by Dr. Rivera. Patient is a 48-year-old male on admission after developing profound nausea and vomiting for 2 days resulting in right upper quadrant pain. Patient was diagnosed with a small perisplenic hematoma with small hemorrhage and mild splenomegaly. Surgery evaluated and recommended monitoring. On exam patient comfortably seated in chair, non diaphoretic, conjunctiva clear, mucosa moist, non-labored breathing, lungs clear to auscultation bilaterally, no rales/rhonchi/wheezing, heart with regular rate and rhythm, no murmur appreciated, bowel sounds present and no tenderness in the abdomen, lower extremities without edema. Hemoglobin remained stable. Patient advised to follow-up with PCP in 1 week with recommendation to check blood count. Work note provided. Total attending time 36 minutes Resident Activity Tracking Resident Involvement: Resident Care Provided Care Provided: Adult Hospital Medicine
[2024-08-26 11:26] VITALS: PULSE 88
--- NOTE | 2024-08-27 14:19 | Electrocardiogram Report ---
Test Reason : Blood Pressure : */* mmHG Vent. Rate : 83 BPM Atrial Rate : 83 BPM P-R Int : 140 ms QRS Dur : 84 ms QT Int : 346 ms P-R-T Axes : 49 55 50 degrees QTcB Int : 406 ms Normal sinus rhythm Normal ECG No previous ECGs available Confirmed by Tony Quiñones ([id number]) on 08/27/2024 2:19:03 PM Referred By: REFERRED SELF Confirmed By: Tony Quiñones
== END 2024-08-26 12:33 | disposition home or self-care (01) ==
LOC: 2S 07:03 → ED 07:03 → SUATTDRO 11:26 → 2S 12:07